=== PATIENT | female | born 1970 | race Caucasian/White ===

== ENCOUNTER 2019-04-25 15:43 | Emergency (ER) | payer OTHER ==
[2019-04-25 15:47] VITALS: BMI 30.4
--- NOTE | 2019-04-25 15:50 | PDOC ---
Rapid Medical Evaluation Time Seen by Provider: 04/25/19 15:46 Medical Evaluation: Allergies Allergy/AdvReac Type Severity Reaction Status Date / Time No Known Drug Allergies Allergy Verified 07/10/18 08:48 peanut Allergy THROAT Verified 07/10/18 08:48 SWELLING shrimp Allergy Swelling Verified 07/10/18 08:48 04/25/19 15:46 Pt c/o: abd pain with nausea, no fever or diarrhea, hx colitis Pt on brief exam: vss, generalized abd pain, bs + x 4, soft Pt ordered for: cbc. comp. lipase, ua, ivf, zofran Pt to proceed to the ED Discharge Disposition - Diagnosis Abdominal pain - Referrals Referrals: Jarad Rosas MD [Primary Care Provider] - - Patient Instructions - Post Discharge Activity
[2019-04-25] MEDS ORDERED: ONDANSETRON 4 MG/2 ML VIAL IVPUSH ONE (15:53)
[2019-04-25] MEDS ORDERED: SODIUM CHLORIDE 1,000 ML IV STA (15:53)
[2019-04-25] MEDS ORDERED: ONDANSETRON 4 MG/2 ML VIAL ONE (16:39)
[2019-04-25] MEDS ORDERED: KETOROLAC TROMETHAMINE 30 MG/1 ML VIAL IVPUSH ONE (16:46)
--- NOTE | 2019-04-25 16:51 | PDOC ---
History of Present Illness - General History Source: Patient - History of Present Illness Timing/Duration: reports: constant, getting worse <José Miguel Aguiar - Last Filed: 04/25/19 19:16> <Jessie Linares - Last Filed: 04/28/19 23:16> - General Chief Complaint: Pain Stated Complaint: ABD PAIN Time Seen by Provider: 04/25/19 15:46 Past History - Past Medical History Anemia: No Asthma: Yes Cancer: No Cardiac Disorders: No CVA: No COPD: No CHF: No Dementia: No Diabetes: No GI Disorders: Yes (colitis) Disorders: No HTN: No Hypercholesterolemia: No Liver Disease: No Psychiatric Problems: Yes (PANIC ATTACKS) Seizures: No Thyroid Disease: No - Surgical History Abdominal Surgery: Yes (L OOPHORECTOMY) Appendectomy: Yes Cardiac Surgery: No Cholecystectomy: Yes Lung Surgery: No Neurologic Surgery: No Orthopedic Surgery: No - Immunization History Immunization Up to Date: Yes - Suicide/Smoking/Psychosocial Hx Smoking Status: No Smoking History: Never smoked Have you smoked in the past 12 months: No Number of Cigarettes Smoked Daily: 0 Hx Alcohol Use: No Drug/Substance Use Hx: No Substance Use Type: None Hx Substance Use Treatment: No <José Miguel Aguiar - Last Filed: 04/25/19 19:16> <Jessie Linares - Last Filed: 04/28/19 23:16> - Past Medical History Allergies/Adverse Reactions: Allergies Allergy/AdvReac Type Severity Reaction Status Date / Time peanut Allergy THROAT Verified 04/25/19 15:47 SWELLING Penicillins Allergy Verified 04/25/19 15:47 shrimp Allergy Swelling Verified 04/25/19 15:47 Home Medications: Ambulatory Orders Hyoscyamine Odt [Levsin Odt -] 0.125 mg PO BID PRN #20 tab.rapdis 07/10/18 Ondansetron HCl [Zofran] 4 mg PO BID PRN #20 tablet 07/10/18 Ibuprofen 600 mg PO QID #30 tablet 04/25/19 Abd/GI Specific PMHX - Complaint Specific PMHX Colitis: Yes <José Miguel Aguiar - Last Filed: 04/25/19 19:16> Review of Systems - Review of Systems Constitutional: No: Chills, Fever ABD/GI: Yes: Nausea, Vomiting, Abdominal cramping. No: Constipated, Diarrhea : No: Dysuria <José Miguel Aguiar - Last Filed: 04/25/19 19:16> *Physical Exam - Vital Signs Last Vital Signs Temp Pulse Resp BP Pulse Ox 97.7 F 90 18 124/82 99 04/25/19 15:45 04/25/19 15:45 04/25/19 15:45 04/25/19 15:45 04/25/19 15:45 - Physical Exam General Appearance: Yes: Appropriately Dressed, Mild Distress HEENT: positive: Normal Voice Neck: positive: Supple Respiratory/Chest: negative: Respiratory Distress Gastrointestinal/Abdominal: positive: Normal Bowel Sounds, Tender (diffusely to lower abd), Soft. negative: Distended, Guarding, Rebound Musculoskeletal: negative: CVA Tenderness Integumentary: positive: Dry, Warm Neurologic: positive: Fully Oriented, Alert, Normal Mood/Affect <José Miguel Aguiar - Last Filed: 04/25/19 19:16> - Vital Signs Last Vital Signs Temp Pulse Resp BP Pulse Ox 97.9 F 72 20 105/70 98 04/25/19 15:47 04/25/19 23:25 04/25/19 23:25 04/25/19 23:25 04/25/19 23:25 <Jessie Linares - Last Filed: 04/28/19 23:16> ED Treatment Course - LABORATORY CBC & Chemistry Diagram: 04/25/19 16:30 04/25/19 16:30 <José Miguel Aguiar - Last Filed: 04/25/19 19:16> - LABORATORY CBC & Chemistry Diagram: 04/25/19 16:30 04/25/19 16:30 - ADDITIONAL ORDERS Additional order review: 04/25/19 16:30 RBC 4.74 MCV 86.9 MCHC 32.5 RDW 14.1 MPV 8.2 Neutrophils % 75.3 Lymphocytes % 18.2 Monocytes % 5.0 Eosinophils % 1.0 Basophils % 0.5 - Medications Given in the ED: ED Medications Discontinued Medications Generic Name Dose Route Start Last Admin Trade Name Freq PRN Reason Stop Dose Admin Sodium Chloride 1,000 mls @ 1,000 mls/hr 04/25/19 15:53 04/25/19 16:56 Normal Saline - IV 04/25/19 16:52 1,000 mls/hr ASDIR STA Administration Ketorolac Tromethamine 30 mg 04/25/19 16:46 04/25/19 17:41 Toradol Injection - IVPUSH 04/25/19 16:47 30 mg ONCE ONE Administration Morphine Sulfate 4 mg 04/25/19 20:56 04/25/19 21:04 Morphine Injection - IVPUSH 04/25/19 20:57 4 mg ONCE ONE Administration Ondansetron HCl 4 mg 04/25/19 15:53 04/25/19 16:56 Zofran Injection IVPUSH 04/25/19 15:54 4 mg ONCE ONE Administration <Jessie Linares - Last Filed: 04/28/19 23:16> Medical Decision Making - Medical Decision Making 04/25/19 16:44 49 yo F, s/p appy and julio remotely, here w/ n/v and lower abd pain x 3 days, similar to prior h/o "colitis" per pt when pt states she was admitted and tx /w abx. No diarrhea, f/c. Of note, pt recently completed zpack "for a cold" See exam R/o recurrent colitis vs diverticulitis Recently completed zpack for URI but denies diarrhea at this time Stable w/ poorly localized ttp to lower abd -pain control -zofran -IVF -labs -CT 04/25/19 19:00 Labs wnl. Pt currently in CT. Pt signed out to YANET Smith at this time <José Miguel Aguiar - Last Filed: 04/25/19 19:16> - Medical Decision Making The patient was seen and evaluated in conjunction with midlevel provider under my direct supervision, ancillary studies were reviewed. I agree with the plan as outlined PA Cosme HPI, workup/dispo as outlined. VS reviewed, wnl. meds, analgesia and labs CT a/p to eval etiology for AP. dispo pending imaging and reeval clinically 04/28/19 23:15 <Jessie Linares - Last Filed: 04/28/19 23:16> *DC/Admit/Observation/Transfer <José Miguel Aguiar - Last Filed: 04/25/19 19:16> <Jessie Linares - Last Filed: 04/28/19 23:16> Diagnosis at time of Disposition: Abdominal pain, Suprapubic pain - Discharge Dispostion Disposition: HOME Condition at time of disposition: Stable - Prescriptions Prescriptions: Ibuprofen 600 mg PO QID #30 tablet - Referrals Referrals: Edilberto Washburn DO [Staff Physician] - Tom Mc MD [Staff Physician] - Jarad Rosas MD [Primary Care Provider] - - Patient Instructions Printed Discharge Instructions: DI for Abdominal Pain-Adult Additional Instructions: Please follow up with gastroenterology and gynecology for continued evaluation and management of your symptoms. If you develop any fever, chills, nausea, vomiting, diarrhea, or any new or worsening symptoms, please return to the ER. - Post Discharge Activity
[2019-04-25 16:57] LABS: BASO % 0.5 % (0-2.0); HEMATOCRIT 41.2 % (32.4-45.2); HEMOGLOBIN 13.4 GM/dL (10.7-15.3); LYMPH % 18.2 % (8-40); MCH 28.3 pg (25.7-33.7); MCHC 32.5 g/dl (32.0-36.0); MEAN CELL VOLUME 86.9 fl (80-96); MEAN PLT VOLUME 8.2 fl (7.5-11.1); NEUT % 75.3 % (42.8-82.8); PLATELET COUNT 213 K/MM3 (134-434); RBC 4.74 M/mm3 (3.60-5.2); RDW 14.1 % (11.6-15.6); WHITE BLOOD COUNT 8.2 K/mm3 (4.0-10.0)
[2019-04-25 17:13] LABS: PH,URINE 5.5 (5.0-8.0); URINE APPEARANCE CLEAR; URINE BILIRUBIN NEGATIVE (NEGATIVE); URINE COLOR YELLOW; URINE GLUCOSE (UA) NEGATIVE (NEGATIVE); URINE KETONE NEGATIVE (NEGATIVE); URINE LEUK ESTERASE NEGATIVE (NEGATIVE); URINE NITRITE NEGATIVE (NEGATIVE); URINE PROTEIN NEGATIVE (NEGATIVE)
[2019-04-25 17:34] LABS: ALBUMIN 3.8 g/dl (3.4-5.0); BILIRUBIN,TOTAL 0.6 mg/dL (0.2-1); CALCIUM 9.2 mg/dL (8.5-10.1); CREATININE 0.7 mg/dL (0.55-1.3); MAGNESIUM 2.3 mg/dL (1.8-2.4); POTASSIUM 4.3 mmol/L (3.5-5.1); TOT PROT 7.1 g/dl (6.4-8.2)
[2019-04-25] MEDS ORDERED: KETOROLAC TROMETHAMINE 30 MG/1 ML VIAL ONE (17:41)
[2019-04-25 17:42] VITALS: TEMP 97.9
[2019-04-25] MEDS ORDERED: morphine CARPU-JECT 4 MG/1 ML DISP.SYRIN IVPUSH ONE (20:56)
[2019-04-25] MEDS ORDERED: MORPHINE SULFATE 2 MG/ML VIAL ONE (21:00)
--- NOTE | 2019-04-25 23:07 | PDOC ---
*Physical Exam - Vital Signs Last Vital Signs Temp Pulse Resp BP Pulse Ox 97.9 F 74 18 114/80 100 04/25/19 15:47 04/25/19 15:47 04/25/19 15:45 04/25/19 15:47 04/25/19 15:47 - Physical Exam Comments: 04/25/19 23:05 Sign-out received from outgoing ER provider Cosme. . Pt interviewed and examined. Ancillary studies reviewed. CT with mildly prominent cervix. Pelvic ultrasound ordered. Ultrasound shows small amount of free fluid, no ovarian torsion. R ovarian cyst on ultrasound. 04/26/19 05:00 Discussed US results with patient and stressed importance of following up with [facility] for further evaluation. Patient verbalized understanding and agrees to plan. Patient states she does feel better at this time and will f/u with [facility] this week. ED Treatment Course - LABORATORY CBC & Chemistry Diagram: 04/25/19 16:30 04/25/19 16:30 - ADDITIONAL ORDERS Additional order review: Laboratory Results 04/25/19 04/25/19 04/25/19 16:49 16:30 16:30 Sodium 139 Potassium 4.3 Chloride 109 H Carbon Dioxide 27 Anion Gap 3 L BUN 16 Creatinine 0.7 Est GFR (CKD-EPI)AfAm 117.09 Est GFR (CKD-EPI)NonAf 101.02 Random Glucose 95 Calcium 9.2 Magnesium 2.3 Total Bilirubin 0.6 AST 9 L ALT 18 Alkaline Phosphatase 76 Total Protein 7.1 Albumin 3.8 Lipase 170 Serum , Qual Negative Urine Color Yellow Urine Appearance Clear Urine pH 5.5 D Ur Specific Coulter 1.024 Urine Protein Negative Urine Glucose (UA) Negative Urine Ketones Negative Urine Blood Negative Urine Nitrite Negative Urine Bilirubin Negative Urine Urobilinogen 1.0 Ur Leukocyte Esterase Negative 04/25/19 16:30 RBC 4.74 MCV 86.9 MCHC 32.5 RDW 14.1 MPV 8.2 Neutrophils % 75.3 Lymphocytes % 18.2 Monocytes % 5.0 Eosinophils % 1.0 Basophils % 0.5 - RADIOLOGY Radiology Studies Ordered: Category Date Time Status PELVIC / BLADDER US [US] Stat Ultrasound 04/25/19 20:55 Completed - Medications Given in the ED: ED Medications Discontinued Medications Generic Name Dose Route Start Last Admin Trade Name Freq PRN Reason Stop Dose Admin Sodium Chloride 1,000 mls @ 1,000 mls/hr 04/25/19 15:53 04/25/19 16:56 Normal Saline - IV 04/25/19 16:52 1,000 mls/hr ASDIR STA Administration Ketorolac Tromethamine 30 mg 04/25/19 16:46 04/25/19 17:41 Toradol Injection - IVPUSH 04/25/19 16:47 30 mg ONCE ONE Administration Morphine Sulfate 4 mg 04/25/19 20:56 04/25/19 21:04 Morphine Injection - IVPUSH 04/25/19 20:57 4 mg ONCE ONE Administration Ondansetron HCl 4 mg 04/25/19 15:53 04/25/19 16:56 Zofran Injection IVPUSH 04/25/19 15:54 4 mg ONCE ONE Administration *DC/Admit/Observation/Transfer Diagnosis at time of Disposition: Abdominal pain, Suprapubic pain - Discharge Dispostion Disposition: HOME Condition at time of disposition: Stable Decision to Admit order: No - Prescriptions Prescriptions: Ibuprofen 600 mg PO QID #30 tablet - Referrals Referrals: Tom Mc MD [Staff Physician] - Jarad Rosas MD [Primary Care Provider] - Edilberto Washburn DO [Staff Physician] - - Patient Instructions Printed Discharge Instructions: DI for Abdominal Pain-Adult Additional Instructions: Please follow up with gastroenterology and gynecology for continued evaluation and management of your symptoms. If you develop any fever, chills, nausea, vomiting, diarrhea, or any new or worsening symptoms, please return to the ER. - Post Discharge Activity
[2019-04-25 23:26] VITALS: BP 105/70; PULSE 72
== END 2019-04-25 23:30 | disposition home or self-care (01) ==
LOC: JER 15:43
PROC: 3E033NZ Introduction of Analgesics, Hypnotics, Sedatives into Peripheral Vein, Percutaneous Approach (ICD-10-PCS; principal; 2019-04-25)
PROC: 3E0333Z Introduction of Anti-inflammatory into Peripheral Vein, Percutaneous Approach (ICD-10-PCS; 2019-04-25)
DX: R10.30 Lower abdominal pain, unspecified (principal); N83.201 Unspecified ovarian cyst, right side; Z87.19 Personal history of other diseases of the digestive system
CPT/HCPCS: 36415; 74177-TC; 76856-TC; 80053; 81003; 83690; 83735; 84703; 85025; 96374; 96375; 99283-25; J7030

== ENCOUNTER 2020-12-18 18:49 | Emergency (ER) | payer OTHER ==
[2020-12-18 18:57] VITALS: BP 137/90; PULSE 68; TEMP 98; BMI 33.2
[2020-12-18] MEDS ORDERED: ACETAMINOPHEN 325 MG TABLET (FP) ONE (19:27)
[2020-12-18] MEDS ORDERED: ACETAMINOPHEN 500 MG TABLET (FP) PO ONE (19:31)
[2020-12-18] MEDS ORDERED: DIPHTH,PERTUSS(ACELL),TET 0.5 ML DISP.SYRIN IM ONE (19:31)
== END 2020-12-18 19:38 | disposition home or self-care (01) ==
LOC: JERFT 18:49
PROC: 3E0234Z Introduction of Serum, Toxoid and Vaccine into Muscle, Percutaneous Approach (ICD-10-PCS; principal; 2020-12-18)
DX: S01.01XA Laceration without foreign body of scalp, initial encounter (principal)
CPT/HCPCS: 90471; 90715; 99284-25

== ENCOUNTER → 2020-12-22 | Day surgery (SDC) | payer OTHER | END | disposition home or self-care (01) | LOC: JMAMMO-SUR 12:40 | PROVIDERS: ATTEND Family Medicine | PROC: 0H9U3ZX Drainage of Left Breast, Percutaneous Approach, Diagnostic (ICD-10-PCS; principal; 2020-12-22) | DX: N60.32 Fibrosclerosis of left breast (principal) | CPT/HCPCS: 19083; 77065-TC; 87899; A4648 ==

== ENCOUNTER → 2025-04-08 | Day surgery (SDC) | payer OTHER | END | disposition home or self-care (01) | LOC: JRADUS-SUR 08:07 | PROVIDERS: ATTEND Surgery | PROC: 0H9U3ZX Drainage of Left Breast, Percutaneous Approach, Diagnostic (ICD-10-PCS; principal; 2025-04-08) | DX: N63.20 Unspecified lump in the left breast, unspecified quadrant (principal); D24.2 Benign neoplasm of left breast | CPT/HCPCS: 19083; 76942-TC; 77065-TC; 87899; 88305-TC; A4648 ==